=== PATIENT | male | born 1990 | race African-American/Black ===

== ENCOUNTER 2016-10-18 12:24 | Emergency (ER) | payer SELFPAY ==
[~2016-10-18] VITALS: Ht 175.3 cm; Wt 60.0 kg
[2016-10-18] MEDS ORDERED: KEFLEX500 M1 PO (13:00)
[2016-10-18 13:15] VITALS: BP 129/74
== END 2016-10-18 13:15 | disposition home or self-care (01) | DRG 125 ==
LOC: ED 12:24
DX: H10.31 Unspecified acute conjunctivitis, right eye (principal); F17.210 Nicotine dependence, cigarettes, uncomplicated